=== PATIENT | female | born 1965 | race Caucasian/White ===

== ENCOUNTER 2019-12-22 16:29 | Emergency (ER) | payer OTHER ==
[~2019-12-22] VITALS: Ht 162.6 cm; Wt 130.2 kg
[2019-12-22] MEDS ORDERED: OSTEO BI-FLEX1 EAC1 PO (17:15)
[2019-12-22] MEDS ORDERED: CLARITIN10 M3 PO (17:16)
[2019-12-22] MEDS ORDERED: NORFLEX100 MG PO (19:35)
[2019-12-22] MEDS ORDERED: NAPROSYN500 MG PO (19:35)
[2019-12-22 20:00] VITALS: BP 140/96
== END 2019-12-22 20:00 | disposition home or self-care (01) ==
LOC: ER 16:29
DX: S16.1XXA Strain of muscle, fascia and tendon at neck level, initial encounter (principal); S40.011A Contusion of right shoulder, initial encounter; I10 Essential (primary) hypertension; Z79.899 Other long term (current) drug therapy; V49.59XA Passenger injured in collision with other motor vehicles in traffic accident, initial encounter; Y93.89 Activity, other specified; Y92.413 State road as the place of occurrence of the external cause; Y99.9 Unspecified external cause status